=== PATIENT | male | born 1960 | race Caucasian/White ===

== ENCOUNTER 2017-01-12 18:44 | Outpatient (CLI) | payer OTHER | END 2017-01-12 18:45 | disposition critical access hospital (66) | DX: R45.851 Suicidal ideations (principal) | CPT/HCPCS: A0425; A0429 ==

== ENCOUNTER 2017-01-12 19:13 | Emergency (ER) | payer OTHER | END 2017-01-13 05:40 | disposition home or self-care (01) | DX: F32.9 Major depressive disorder, single episode, unspecified (principal); R45.851 Suicidal ideations; F10.120 Alcohol abuse with intoxication, uncomplicated; I10 Essential (primary) hypertension ==

== ENCOUNTER 2018-12-21 18:24 | Outpatient (CLI) | payer SELFPAY | END 2018-12-21 18:25 | disposition E | LOC: EMS 18:24 | PROVIDERS: ATTEND Surgery ==